=== PATIENT | female | born 1980 ===

== ENCOUNTER 2019-07-25 05:40 | Day surgery (SDC) | payer OTHER ==
[~2019-07-25 05:40] MED LIST: FOLIC ACID0.4 MG PO; OBSTETRIX EC1 TAB.EC PO
== END 2019-07-25 15:40 | disposition home or self-care (01) ==
LOC: CIR.AMB 05:40
DX: Z30.2 Encounter for sterilization (principal); Z30.432 Encounter for removal of intrauterine contraceptive device